=== PATIENT | female | born 1935 | race Caucasian/White ===

== ENCOUNTER → 2021-06-10 | Outpatient (CLI) | payer MEDICARE, OTHER ==
[~2021-06-10] MED LIST: ELIQUIS 2.5 MG2.5 MG PO; NORCO 5-325 TA1 EACH PO; PERCOCET 5/325 T1 EA PO; ULTRA-LIGHT RO1 EACH MC; VITAMIN D 11000 UNIT PO
== END ==
LOC: KOH-I 09:05
DX: S49.91XA Unspecified injury of right shoulder and upper arm, initial encounter (principal); S42.401A Unspecified fracture of lower end of right humerus, initial encounter for closed fracture
CPT/HCPCS: 73030; 73060

== ENCOUNTER 2022-02-15 04:25 | Emergency (ER) | payer MEDICARE, OTHER ==
[2022-02-15 04:52] LABS: HEMOGLOBIN 15.2 gm/dl (12.3-15.3); RED BLOOD COUNT 5.09 M/UL (4.00-5.10); WHITE BLOOD COUNT 15.2 K/UL (4.5-11.0)
[2022-02-15 05:15] LABS: BUN/CREATININE RATIO 20 (0-10)
== END 2022-02-15 11:30 | disposition home or self-care (01) ==
LOC: ER1 04:25
PROVIDERS: Emergency Medicine
DX: S00.03XA Contusion of scalp, initial encounter (principal); N39.0 Urinary tract infection, site not specified; W19.XXXA Unspecified fall, initial encounter; Y92.009 Unspecified place in unspecified non-institutional (private) residence as the place of occurrence of the external cause
CPT/HCPCS: 51701; 70450; 71045; 80048; 81001; 84484; 85025; 87086; 93005; 99284; J2405